=== PATIENT | female | born 1965 | race Caucasian/White ===

== ENCOUNTER → 2017-10-01 | Outpatient (CLI) | payer OTHER, MEDICAID | LOC: BMCIMAGING 09:40 | PROVIDERS: ATTEND Orthopaedic Surgery | DX: M25.512 Pain in left shoulder (principal) ==

== ENCOUNTER 2018-01-05 21:20 | Emergency (ER) | payer OTHER, MEDICAID ==
[2018-01-05 21:26] VITALS: O2SAT 93
--- NOTE | 2018-01-05 22:06 | EDPHY ---
H & P Time Seen by Provider: 01/05/18 22:01 HPI/ROS: CHIEF COMPLAINT: cough HISTORY OF PRESENT ILLNESS: This patient is a 52 y/o female with history of spastic cerebral palsy and paraplegia complaining of cough and difficulty breathing. Onset of URI sx 2 days ago, including sore throat, nasal congestion and cough. Her primary complaint is that when she lies down, the cough worsens and she has difficulty sleeping. She is otherwise not SOB. No fever, chest pain, vomiting, diarrhea, urinary complaints, or other associated symptoms. No h/o pneumonia. REVIEW OF SYSTEMS: A 10 point review of systems was performed and is negative with the exception of the elements mentioned in the history of present illness. Past Medical/Surgical History: Spastic cerebral palsy and paraplegia Hypertension Cholecystectomy Social History: Nonsmoker. Friend at bedside. PCP. Dr. Israel. Smoking Status: Never smoked Physical Exam: General Appearance: Alert, nontoxic appearing Eyes: Pupils equal and round, no conjunctival injection ENT, Mouth: Pharyngeal erythema. Mucous membranes moist Neck: Normal inspection Respiratory: Lungs are clear to auscultation Cardiovascular: Regular rate and rhythm Gastrointestinal: Abdomen is soft Neurological: Alert, paraplegic Skin: Warm and dry Extremities: normal inspection Psychiatric: Mood and affect normal Constitutional: Initial Vital Signs Temperature (C) 37 C 01/05/18 21:23 Heart Rate 95 01/05/18 21:23 Respiratory Rate 18 01/05/18 21:23 Blood Pressure 114/96 H 01/05/18 21:23 O2 Sat (%) 93 01/05/18 21:23 O2 Delivery Mode Room Air Allergies/Adverse Reactions: ibuprofen [Ibuprofen] Allergy (Intermediate, Verified 01/05/18 21:23) Rash propranolol HCl [From Inderal] Allergy (Intermediate, Verified 01/05/18 21:23) Rash codeine [Codeine] Allergy (Unknown, Verified 01/05/18 21:23) VOMIT ciprofloxacin [From Cipro] Allergy (Verified 01/05/18 21:23) Unknown ciprofloxacin HCl [From Cipro] Allergy (Verified 01/05/18 21:23) Unknown sulfamethoxazole [From Bactrim] Allergy (Verified 01/05/18 21:23) trimethoprim [From Bactrim] Allergy (Verified 01/05/18 21:23) venlafaxine HCl [From Effexor] Allergy (Verified 01/05/18 21:23) Unknown Home Medications: Medication Instructions Recorded Gabapentin [Neurontin] 100 mg PO 11/24/11 LORazepam [Ativan] 1 mg PO 11/24/11 oxyCODONE/APAP 5/325 [Percocet 1 tab PO Q6 #10 tab 11/24/11 5/325] Albuterol [Proventil Inhaler (RX)] 1 - 2 puffs IH Q4 04/12/12 Tizanidine HCl [Zanaflex] 0 mg PO 04/12/12 Medical Decision Making - Diagnostics Imaging Results: Chest X-Ray 01/05/18 22:10 Impression: No evidence of acute cardiopulmonary abnormality. Imaging: I viewed and interpreted images myself ED Course/Re-evaluation: 52 y/o female with paraplegia and cerebral palsy presents with persistent cough. Lungs clear to auscultation. Plan for chest x-ray. 22:32 Reviewed chest x-ray. Negative for pneumonia. 22:35 Reassessed patient. Discussed imaging results. Abx not indicated. Plan to discharge home in good condition. Recommended OTC night time cough medication e.g. NyQuil. Follow up and return precautions discussed. The patient is comfortable with this plan. Differential Diagnosis: includse though not limited to pneumonia, sinusitis, otitis media, strep throat Departure - Departure Disposition: Home, Routine, Self-Care Clinical Impression: Acute bronchitis Qualifiers: Bronchitis organism: unspecified organism Qualified Code(s): J20.9 - Acute bronchitis, unspecified Condition: Good Instructions: Acute Bronchitis (ED) Additional Instructions: 1. Take a night time cold and cough medication such as NyQuil, Delsym Night Time , Robitussin Night Time, or their generic counterparts. You can try sleeping propped up on pillows. 2. Follow up with your primary care provider this week for reevaluation. 3. Return to the emergency department for high fever, worsening difficulty breathing, or other worsening of condition. Referrals: Logan Israel MD [Primary Care Provider] - As per Instructions Report Scribed for: Lola Tillman Report Scribed by: Kaitlyn Griggs Date of Report: 01/05/18 Time of Report: 22:01 Physician Review and Approval Statement: 01/05/18 22:01 Portions of this note were transcribed by a nuclear medical tech. I personally performed a history, physical exam, medical decision making, and confirmed accuracy of information the transcribed note.
[2018-01-05 22:43] VITALS: BP 126/99; PULSE 88; RESP 16; TEMP 98.4
== END 2018-01-05 22:43 | disposition home or self-care (01) ==
LOC: EDUNIT#
DX: J20.9 Acute bronchitis, unspecified (principal); I10 Essential (primary) hypertension